=== PATIENT | male | born 1940 | race Hispanic/Latino ===

== ENCOUNTER 2023-07-25 14:12 | Emergency (ER) | payer OTHER ==
[~2023-07-25] VITALS: Ht 182.9 cm; Wt 72.6 kg
[~2023-07-25 14:12] MED LIST: ASPIRIN81 M1 PO; FLOMAX0.4 MG PO; GALANTAMINE HBR4 MG PO; LIPITOR20 MG PO; LISINOPRIL5 MG PO; NAMENDA10 MG PO; TRAZODONE HCL100 MG PO; VITAMIN D3 PO
[2023-07-25] MEDS ORDERED: IOPAMIDOL 370 MG/ML 100 ML INFUS..BTL INJ ONE (16:56)
[2023-07-25] MEDS ORDERED: SODIUM CHLORIDE 0.9% 500ML 500 ML ONE (16:57)
[2023-07-25 17:48] VITALS: O2SAT 96
== END 2023-07-25 18:36 | disposition home or self-care (01) ==
LOC: ER 15:26
DX: Z46.6 Encounter for fitting and adjustment of urinary device (principal); E11.9 Type 2 diabetes mellitus without complications; G30.9 Alzheimer's disease, unspecified; F02.80 Dementia in other diseases classified elsewhere, unspecified severity, without behavioral disturbance, psychotic disturbance, mood disturbance, and anxiety
CPT/HCPCS: 51705; 75989; 99283; J7040; Q9967